=== PATIENT | male | born 1950 | race Caucasian/White ===

== ENCOUNTER → 2019-03-24 | Outpatient (CLI) | payer MEDICARE, BC ==
[2016-01-15 12:20] VITALS: BP 121/82
[~2019-03-24] MED LIST: CANA300T PO; CARV12.5 PO; CRESTOR5 MG PO; DICL100G18 TP; EPIN1AMP IV; FLUT1DIS5 IH; LISI-338 PO; LORA10TA68 PO; MELO7.5T29 PO; METF500T16 PO; MONT10TA80 PO; OXYB15TA4 PO; RIVA10TA PO; SPIR25TA PO
--- NOTE | 2019-03-24 17:02 | RAD ---
Carotid Doppler ultrasound INDICATION: Arteriosclerosis. COMPARISON: None TECHNIQUE: Color, grayscale and doppler ultrasound images obtained of the carotid system bilaterally. Percent stenosis is estimated using criteria that correlates with NASCET methodology. FINDINGS: Velocites and ratios are listed below. Velocites are as follows in cm/s: Right CCA PSV: 56 Right ICA PSV: 65 Right ICA EDV: 20 Right ICA/CCA Ratio: 1.16 Right Vertebral Artery: antegrade Left CCA PSV: 74 Left ICA PSV: 70 Left ICA EDV: 13 Left ICA/CCA Ratio: 0.95 Left Vertebral Arery: antegrade There is bilateral intimal thickening and soft as well as calcified plaque. Plaque is greatest at the carotid bulbs bilaterally. No evidence of occlusion. IMPRESSION: Bilateral atherosclerotic plaque, particularly in the region of the bulbs. No evidence of hemodynamically significant stenosis. Electronically signed by: Donnie Phillips MD (03/24/2019 4:59 PM) [facility]
== END | disposition home or self-care (01) ==
LOC: US 09:59
PROVIDERS: ATTEND Physician Assistant
DX: I65.23 Occlusion and stenosis of bilateral carotid arteries (principal)
CPT/HCPCS: 93880

== ENCOUNTER → 2019-10-20 | Outpatient (CLI) | payer MEDICARE, BC ==
[2016-01-15 12:20] VITALS: BP 121/82
[~2019-10-20] MED LIST changes: +DULA1.5P SQ; +ESCITALOPRAM OX10 MG PO; +FURO-69 PO; +LEVO500T8 PO; +OXYB5TAB10 PO; +POTA10TA12 PO; +RIVA20TA2 PO
--- NOTE | 2019-10-20 11:46 | RAD ---
Chest radiograph 10/20/2019 12:00 AM INDICATION: Dyspnea COMPARISON: None available TECHNIQUE: Frontal and lateral views of the chest are provided. FINDINGS: The cardiomediastinal silhouette is borderline enlarged There are no pleural effusions. There is no pulmonary vascular congestion. There is no pneumothorax. Patchy opacity at the right lung base may represent pulmonary infiltrate in the appropriate clinical setting. No significant osseous abnormality is identified. IMPRESSION: Patchy opacity at the right lung base may represent pulmonary infiltrate in appropriate clinical setting. Recommend follow-up to resolution. Electronically signed by: Nichol De Souza MD (10/20/2019 11:43 AM) [id number]
== END | disposition home or self-care (01) ==
LOC: PMG 10:23
PROVIDERS: ATTEND Physician Assistant
DX: R42 Dizziness and giddiness (principal); R06.00 Dyspnea, unspecified
CPT/HCPCS: 71046

== ENCOUNTER 2019-10-21 07:46 | Inpatient (IN) | payer MEDICARE, BC ==
[~2019-10-21] VITALS: Ht 182.9 cm; Wt 121.1 kg
[~2019-10-21 07:46] MED LIST changes: -DULA1.5P SQ; -ESCITALOPRAM OX10 MG PO; -FURO-69 PO; -LEVO500T8 PO; -OXYB5TAB10 PO; -POTA10TA12 PO; -RIVA20TA2 PO
--- NOTE | 2019-10-21 08:18 | PHYS DOC ---
Past History Past Medical History: CAD, CHF, COPD, Diabetes Additional Past Surgical Histo: coronary stents one year ago X3 Adult General Chief Complaint Chief Complaint: WEAKNESS/GENERALIZED HPI HPI Patient 69-year-old male presents secondary to progressive weakness. He has a history of congestive heart failure, diabetes, COPD, coronary artery disease status post 3 stents placed last year. He was seen by his primary care physician yesterday where chest x-ray was performed which showed a subtle right infiltrate. Patient reports he had labs performed but no results have been completed at this time. He also admits to some intermittent chills but denies fever or cough. He is concerned for possible congestive heart failure. He was given a prescription for Lasix and potassium yesterday which he took states he has not urinated much at this time. Denies shortness of breath or chest pain or lower extremity edema. Denies abdominal pain. Also c/o mild flank pain and decreased. Review of Systems Review of Systems All other ROS is negative unless otherwise stated in HPI Allergies Allergies Allergies Coded Allergies Type Severity Reaction Last Updated Verified venom-honey bee Allergy Severe Anaphylaxis 01/10/16 Yes Physical Exam Physical Exam See above Constitutional: Well developed, well nourished, no acute distress, non-toxic appearance. [] HENT: Normocephalic, atraumatic, bilateral external ears normal, oropharynx moist, no oral exudates, nose normal. [] Eyes: PERRLA, EOMI, conjunctiva normal, no discharge. [] Neck: Normal range of motion, no tenderness, supple, no stridor. [] Cardiovascular:Heart rate regular rhythm, no murmur [no lower extremity edema] Lungs & Thorax: Bilateral breath sounds clear to auscultation [] Abdomen: Bowel sounds normal, soft, no tenderness, no masses, no pulsatile masses. [] Skin: Warm, dry, no erythema, no rash. [] Back: No tenderness, no CVA tenderness. [] Extremities: No tenderness, no cyanosis, no clubbing, ROM intact, no edema. [] Neurologic: Alert and oriented X 3, normal motor function, normal sensory function, no focal deficits noted. [] Psychologic: Affect normal, judgement normal, mood normal. [] Current Patient Data Lab Results Laboratory Tests Test 10/21/19 08:51 White Blood Count 10.3 x10^3/uL Red Blood Count 4.26 x10^6/uL Hemoglobin 12.7 g/dL Hematocrit 38.9 % Mean Corpuscular Volume 91 fL Mean Corpuscular Hemoglobin 30 pg Mean Corpuscular Hemoglobin Concent 33 g/dL Red Cell Distribution Width 15.4 % Platelet Count 198 x10^3/uL Neutrophils (%) (Auto) 87 % Lymphocytes (%) (Auto) 6 % Monocytes (%) (Auto) 6 % Eosinophils (%) (Auto) 0 % Basophils (%) (Auto) 1 % Neutrophils # (Auto) 9.0 x10^3uL Lymphocytes # (Auto) 0.6 x10^3/uL Monocytes # (Auto) 0.6 x10^3/uL Eosinophils # (Auto) 0.0 x10^3/uL Basophils # (Auto) 0.1 x10^3/uL Sodium Level 135 mmol/L Potassium Level 4.1 mmol/L Chloride Level 96 mmol/L Carbon Dioxide Level 25 mmol/L Anion Gap 14 Blood Urea Nitrogen 21 mg/dL Creatinine 1.1 mg/dL Estimated GFR (Cockcroft-Gault) 66.0 Glucose Level 221 mg/dL Calcium Level 8.5 mg/dL Magnesium Level 1.6 mg/dL Troponin I Quantitative < 0.017 ng/mL HZ-Hop-C-Type Natriuretic Peptide 2386 pg/mL Current Medications Medications (Trade) Dose Ordered Sig/Letha Route PRN Reason Start Time Stop Time Status Last Admin Dose Admin Sodium Chloride 500 ml @ 0 mls/hr 1X ONCE IV 10/21/19 08:45 10/21/19 08:46 DC 10/21/19 08:54 Levofloxacin/ Dextrose 150 ml @ 100 mls/hr 1X ONCE IV 10/21/19 09:45 10/21/19 11:14 Magnesium Sulfate 100 ml @ 100 mls/hr 1X ONCE IV 10/21/19 09:45 10/21/19 10:44 UNV EKG EKG Performed at 0846a. Slightly irregulary rhythm. Left axis Inteval wnl.[] Radiology/Procedures Radiology/Procedures Chest radiograph 10/20/2019 12:00 AM INDICATION: Dyspnea COMPARISON: None available TECHNIQUE: Frontal and lateral views of the chest are provided. FINDINGS: The cardiomediastinal silhouette is borderline enlarged There are no pleural effusions. There is no pulmonary vascular congestion. There is no pneumothorax. Patchy opacity at the right lung base may represent pulmonary infiltrate in the appropriate clinical setting. No significant osseous abnormality is identified. IMPRESSION: Patchy opacity at the right lung base may represent pulmonary infiltrate in appropriate clinical setting. Recommend follow-up to resolution.[] CHEST PA LATERAL History: Weakness Comparison: October 20, 2019 Findings: Increased right basilar consolidation. Patchy bibasilar opacities. Mild cardiomegaly, unchanged. No pneumothorax. No pleural effusion. Impression: 1. Increased right basilar consolidation, concerning for pneumonia. Recommend follow-up to ensure resolution. 2. Increased patchy left basilar opacity, may represent atelectasis or additional consolidations. Electronically signed by: Naeem Palencia DO (10/21/2019 9:24 AM) [facility] Course & Med Decision Making Course & Med Decision Making Patient seen for progressive weakness. Multiple comorbidities presents possible right lower lobe pneumonia. We'll repeat chest x-ray today, check labs and give 500 mL normal saline bolus. 0940: Patient's workup was completed at this time and is significant for community required pneumonia bilateral bases more so on the right than the left. He has been given 750 mg of Levaquin for this and blood cultures are pending. Is not currently meeting SIRS criteria. He also appears to be in congestive heart failure exacerbation with elevated BNP. His magnesium was low as well at 1.6 so we'll give him 1 g of magnesium sulfate. Will discuss admission with the hospitalist. Dragon Disclaimer Dragon Disclaimer This electronic medical record was generated, in whole or in part, using a voice recognition dictation system. Departure Departure: Impression: Primary Impression: Community acquired pneumonia Additional Impressions: CHF exacerbation Weakness Hypomagnesemia Disposition: ADMITTED INPATIENT Admitting Physician: Fabian Vega Condition: STABLE Referrals: LARISSA WILLIAMSON (PCP) Problem Qualifiers JEFFERSON REYNOSO DO Oct 21, 2019 08:17
[2019-10-21] MEDS ORDERED: IV NORMAL SALINE 500ML 500 ML IV ONE (08:45)
[2019-10-21 09:06] LABS: BASO # 0.1 x10^3/uL (0.0-0.2); BASO % 1 % (0-3); EOS % 0 % (0-3); HEMATOCRIT 38.9 % (39.0-53.0); HEMOGLOBIN 12.7 g/dL (13.0-17.5); LYMPH # 0.6 x10^3/uL (1.0-4.8); LYMPH % 6 % (24-48); MEAN CORPUSCULAR HEMOGLOBIN 30 pg (25-35); MEAN CORPUSCULAR HGB CONC 33 g/dL (31-37); MEAN CORPUSCULAR VOLUME 91 fL (79-100); MONO # 0.6 x10^3/uL (0.0-1.1); MONO % 6 % (0-9); NEUT % 87 % (31-73); PLATELET COUNT 198 x10^3/uL (140-400); RED BLOOD COUNT 4.26 x10^6/uL (4.30-5.70); RED CELL DISTRIBUTION WIDTH 15.4 % (11.5-14.5); WHITE BLOOD COUNT 10.3 x10^3/uL (4.0-11.0)
[2019-10-21 09:13] LABS: CALCIUM 8.5 mg/dL (8.5-10.1); CREATININE 1.1 mg/dL (0.7-1.3); POTASSIUM 4.1 mmol/L (3.5-5.1)
[2019-10-21 09:25] LABS: MAGNESIUM 1.6 mg/dL (1.8-2.4)
--- NOTE | 2019-10-21 09:27 | RAD ---
CHEST PA LATERAL History: Weakness Comparison: October 20, 2019 Findings: Increased right basilar consolidation. Patchy bibasilar opacities. Mild cardiomegaly, unchanged. No pneumothorax. No pleural effusion. Impression: 1. Increased right basilar consolidation, concerning for pneumonia. Recommend follow-up to ensure resolution. 2. Increased patchy left basilar opacity, may represent atelectasis or additional consolidations. Electronically signed by: Naeem Palencia DO (10/21/2019 9:24 AM) [facility]
[2019-10-21] MEDS ORDERED: MAGNESIUM SULFATE 1GM 100 ML IV ONE (09:45)
[2019-10-21] MEDS ORDERED: IPRATRPIUM/ALBUTEROL 0.5/2.5MG 3 ML NEBU. NEB PRN (10:00)
[2019-10-21] MEDS ORDERED: ONDANSETRON PF 4 MG/2 ML VIAL. IV PRN (10:00)
[2019-10-21 11:01] VITALS: BP 132/86
[2019-10-21] MEDS ORDERED: MONT10TA80 PO (13:09)
[2019-10-21] MEDS ORDERED: FURO-69 PO (13:09)
[2019-10-21] MEDS ORDERED: POTA10TA12 PO (13:09)
[2019-10-21] MEDS ORDERED: RIVA20TA2 PO (13:09)
[2019-10-21] MEDS ORDERED: DULA1.5P SQ (13:09)
[2019-10-21] MEDS ORDERED: ESCITALOPRAM OX10 MG PO (13:09)
[2019-10-21] MEDS ORDERED: ACETAMINOPHEN 325 MG TABLET PO ONE (14:13)
[2019-10-21] MEDS ORDERED: FUROSEMIDE 40 MG/4 ML VIAL ONE (14:13)
[2019-10-21] MEDS: ACETAMINOPHEN 325 MG TABLET PO PRN (14:16)
[2019-10-21] MEDS ORDERED: DEXTROSE 50% 25 GM / 50ML DISP.SYRIN. IV PRN (14:45)
[2019-10-21 14:46] VITALS: BP_SYST 108
[2019-10-21 15:09] LABS: INFLUENZA A PATIENT NEGATIVE (NEGATIVE); INFLUENZA B PATIENT NEGATIVE (NEGATIVE)
--- NOTE | 2019-10-21 15:09 | HP ---
ADMIT DATE: 10/21/2019 HISTORY OF PRESENT ILLNESS: The patient is a 69-year-old male patient who presented to the Emergency Room of [facility] complaining of progressive weakness. He has history of congestive heart failure, diabetes, COPD, coronary artery disease, status post 3 stents placed last year. He was seen by his primary care physician yesterday where a chest x-ray was performed and showed a subtle right infiltrate. The patient reports that he had labs performed, but no results have been completed at this time. He also admits to some intermittent chills, but denies any fever or cough. He is concerned for possible congestive heart failure. He was given a prescription for Lasix and potassium yesterday, which he took and he stated he has not urinated much at this time. Did complain of shortness of breath. Cough is mostly dry. He also complained of orthopnea. On arrival, he was evaluated in the Emergency Room and has had a chest x-ray, which basically showed that the patient has increased right basilar consolidation with patchy bibasilar opacities, mild cardiomegaly, unchanged. No pneumothorax or pleural effusion. His lab work showed that his white cell count was normal. His chemistry was unremarkable. He did have hypomagnesemia. He was admitted with community-acquired pneumonia as well as possible acute on chronic congestive heart failure as well as COPD exacerbation. PAST MEDICAL HISTORY: Significant for coronary artery disease, status post myocardial infarction, status post PCI with 3 stents deployment, has history of CVA/TIA. He has aphasia for which he was seen by Dr. Camacho, hypertension, hyperlipidemia, type 2 diabetes mellitus, generalized osteoarthritis, prostate cancer, status post prostatectomy, diabetic peripheral neuropathy, also had morbid obesity, obstructive sleep apnea for which he is on CPAP. He also is known to have COPD, although he is not on oxygen at home. PAST SURGICAL HISTORY: Significant for percutaneous coronary intervention with stent deployment x 3, prostatectomy, left total knee arthroplasty and colonoscopy. ALLERGIES: He is allergic to CEPHALEXIN, OXYCODONE AND HONEY BEE VENOM. MEDICATIONS: He is currently on epinephrine 1 mg intravenously as needed for anaphylaxis. He is on Xarelto 20 mg once a day, Crestor 5 mg at bedtime, carvedilol 12.5 mg twice a day, lisinopril 5 mg once a day, spironolactone 25 mg once a day, escitalopram oxalate 10 mg once a day, potassium chloride 10 mEq daily, furosemide 20 mg once a day. He is on Advair Diskus 500/50 one puff twice a day, Singulair 10 mg at bedtime, metformin 500 mg twice a day and Trulicity 1.5 mg in 0.5 mL injection subcutaneously once a week. FAMILY HISTORY: He has no brothers or sisters. His father at the age of 74 because of mesothelioma. Mother at age of 88 because of Alzheimer disease and cerebrovascular accident. SOCIAL HISTORY: [place] is for the [place] time[place] They meet about 4-5 times a year. He [place] to stay in his [place]. He is an ex-smoker, quit in 1992. He used to smoke 2-3 packs a day since he was 16 years old and he used to drink alcohol before. Has not drink alcohol for years and does not use any drugs. 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 REVIEW OF SYSTEMS: The patient denies any blurring of vision, cataract, glaucoma or macular degeneration. Denied any earache, tinnitus or sensorineural deafness. Denied any nosebleeds, stuffy nose or postnasal drip. Denied any sore throat, sore tongue, toothache, hoarseness of voice or difficulty swallowing. Denied any nausea, vomiting, diarrhea or constipation. Denied any hematemesis, melena, hematochezia. Denied any dysuria, frequency or hematuria. Denied any chest pain. Did complain of shortness of breath, orthopnea and cough, which is mostly dry. PHYSICAL EXAMINATION: GENERAL: On arrival to the Emergency Room, he looked somewhat tachypneic, but there is no pallor, jaundice, cyanosis or thyromegaly. No jugular venous distention. No limb edema. VITAL SIGNS: His heart rate was 86, blood pressure was 138/65, temperature was 99, respiratory rate 12 and oxygen saturation was 94% on room air. HEAD, EYES, EARS, NOSE AND THROAT: Showed normocephalic, atraumatic. NECK: Supple. HEART: Showed normal first and second heart sounds. No gallop or murmur. CHEST: Clear to auscultation. No crepitation or rhonchi. ABDOMEN: Distended, soft, nontender. NEUROLOGIC: He was awake, alert, responding appropriately. All cranial nerves intact. EXTREMITIES: He moves extremities without difficulty. He ambulates with a walker; however, can walk only short distances because of severe pain in his both knee joints. LABORATORY DATA: Lab work on arrival showed a white cell count of 10,000, hemoglobin 12.7, hematocrit 38, MCV 91, and platelet count of 198,000 with normal manual differential. His chemistry showed a serum sodium 135, potassium 4.1, chloride 96, bicarbonate 25, anion gap of 14, BUN 21, creatinine was 1.1, estimated GFR was 66 mL per minute. His glucose was 221, calcium was 8.5, magnesium was 1.6. His beta natriuretic peptide was 2386. Lactic acid was only 1.3 and first set of troponin was 0.017. His chest x-ray showed increased right basilar consolidation, patchy bibasilar opacities, mild cardiomegaly unchanged. No pneumothorax, pleural effusion. ASSESSMENT AND PLAN: The patient was admitted with: 1. Community-acquired pneumonia. 2. Chronic obstructive pulmonary disease exacerbation. 3. Acute on chronic diastolic congestive heart failure, has multitude of other medical problems including: A. He has coronary artery disease, status post myocardial infarction, status post PCI with stent deployment, atrial fibrillation, rate controlled, on apixaban. B. History of transient ischemic attack and aphasia that has resolved; hypertension, hyperlipidemia, type 2 diabetes, osteoarthritis, and diabetic peripheral neuropathy. PLAN: We will reconcile all his medication. He was started on IV Levaquin. He was given 40 mg IV Lasix. We will continue to monitor his lab works closely and decide the further management accordingly. We will consult the cardiology team to assist with management. NAVARRO SAUNDERS MD DR: MARY/kael JOB#: [id number] / [id number]
[2019-10-21] MEDS: ALBUTEROL SULFATE 2.5 MG/3 ML NEBU. NEB SCH ×2 (16:10→20:50)
--- NOTE | 2019-10-21 16:10 | PDOC2 ---
CONSULT Date of Admission DATE: 10/21/19 TIME: 16:02 Reason for Consult: Congestive heart failure Referring Physician: Dr. Vega Chief Complaint Shortness of breath Source: Chart review, Patient Problem List Problems Medical Problems: (1) CHF exacerbation Status: Acute (2) Community acquired pneumonia Status: Acute (3) Hypomagnesemia Status: Acute (4) Weakness Status: Acute History of Present Illness 69-year-old male with history of coronary artery disease s/p PCI/stents placement one year ago, usually followed by Dr. Carreon at [facility] in [place], [place] presented complaining of progressive shortness of breath and weakness. He was diagnosed with community-acquired pneumonia and congestive heart failure and admitted for further management. He denied any chest pain, palpitations or syn cope. Past Medical History Coronary artery disease s/p PCI/3 stents placement one year ago Congestive heart failure, most probably chronic diastolic Atrial fibrillation, most probably permanent Hypertension Hyperlipidemia Diabetes mellitus type 2 CVA/TIA Obstructive sleep apnea on CPAP Prostate cancer COPD Osteoarthritis Past Surgical History Prostatectomy Left knee arthroplasty Family History Not contributory Social History Patient quit smoking and drinking alcohol several years ago. He denied any drug abuse. Current Medications Current Medications Sodium Chloride 500 ml @ 0 mls/hr 1X ONCE IV Last administered on 10/21/19at 08:54; Start 10/21/19 at 08:45; Stop 10/21/19 at 08:46; Status DC Levofloxacin/ Dextrose 150 ml @ 100 mls/hr 1X ONCE IV Last administered on 10/21/19at 10:11; Start 10/21/19 at 09:45; Stop 10/21/19 at 11:14; Status DC Magnesium Sulfate 100 ml @ 100 mls/hr 1X ONCE IV Last administered on 10/21/19at 10:10; Start 10/21/19 at 09:45; Stop 10/21/19 at 10:44; Status DC Ondansetron HCl (Zofran) 4 mg PRN Q4HRS PRN IV NAUSEA/VOMITING Last administered on 10/21/19at 14:53; Start 10/21/19 at 10:00; Stop 10/22/19 at 09:59 Albuterol/ Ipratropium (Duoneb) 3 ml QIDPRN PRN NEB SHORTNESS OF BREATH; Start 10/21/19 at 10:00; Stop 10/22/19 at 09:59 Acetaminophen (Tylenol) 650 mg PRN Q6HRS PRN PO fever Last administered on 10/21/19at 14:16; Start 10/21/19 at 14:15 Furosemide (Lasix) 40 mg DAILY IVP Last administered on 10/21/19at 14:16; Start 10/22/19 at 09:00; Stop 10/21/19 at 14:50; Status DC Levofloxacin/ Dextrose 150 ml @ 100 mls/hr Q24H IV ; Start 10/22/19 at 10:00 Acetaminophen (Tylenol) 325 mg STK-MED ONCE PO ; Start 10/21/19 at 14:13; Stop 10/21/19 at 14:13; Status DC Furosemide (Lasix) 40 mg STK-MED ONCE .ROUTE ; Start 10/21/19 at 14:13; Stop 10/21/19 at 14:14; Status DC Carvedilol (Coreg) 12.5 mg BID PO ; Start 10/21/19 at 21:00 Epinephrine HCl (EPINEPHrine AMPULE) 1 mg 1X PRN IM ANAPHYLAXIS; Start 10/21/19 at 14:15; Stop 10/21/19 at 15:03; Status DC Furosemide (Lasix) 20 mg DAILY PO ; Start 10/22/19 at 09:00; Stop 10/21/19 at 14:19; Status DC Lisinopril (Prinivil) 5 mg DAILY PO ; Start 10/22/19 at 09:00 Metformin HCl (Glucophage) 500 mg HS PO ; Start 10/21/19 at 21:00 Montelukast Sodium (Singulair) 10 mg HS PO ; Start 10/21/19 at 21:00 Potassium Chloride (Klor-Con) 10 meq DAILY PO ; Start 10/22/19 at 09:00 Spironolactone (Aldactone) 25 mg DAILY PO ; Start 10/22/19 at 09:00 Non-Formulary Medication (Dulaglutide (Trulicity)) 1.5 mg WEEKLY SQ ; Start 10/28/19 at 09:00; Status UNV Citalopram Hydrobromide (CeleXA) 20 mg QHS PO ; Start 10/21/19 at 21:00 Non-Formulary Medication (Fluticasone/ Salmeterol (Advair 500-50 Diskus)) 1 puff BID IH ; Start 10/21/19 at 21:00; Stop 10/21/19 at 14:36; Status DC Rivaroxaban (Xarelto) 20 mg DAILYWSUP PO ; Start 10/21/19 at 17:00 Atorvastatin Calcium (Lipitor) 20 mg QHS PO ; Start 10/21/19 at 21:00 Albuterol Sulfate (Ventolin) 2.5 mg RTQID NEB ; Start 10/21/19 at 16:00 Budesonide (Pulmicort) 0.5 mg RTBID NEB ; Start 10/21/19 at 20:00 Insulin Human Lispro (HumaLOG) 0-7 UNITS TIDWMEALS SQ ; Start 10/21/19 at 17:00 Dextrose (Dextrose 50%-Water Syringe) 12.5 gm PRN Q15MIN PRN IV SEE COMMENTS; Start 10/21/19 at 14:45 Active Scripts Active Reported Xarelto (Rivaroxaban) 20 Mg Tablet 1 Tab PO DAILY 30 Days with food Escitalopram Oxalate 10 Mg Tablet 1 Tab PO HS Trulicity (Dulaglutide) 1.5 Mg/0.5 Ml Pen.injctr 1.5 Mg SQ WEEKLY Montelukast Sodium Tablet (Montelukast Sodium) 10 Mg Tablet 10 Mg PO HS Lasix (Furosemide) 20 Mg Tablet 1 Tab PO DAILY 30 Days Potassium Chloride (Potassium Chloride) 10 Meq Tab.er.prt 10 Meq PO DAILY Crestor (Rosuvastatin Calcium) 5 Mg Tablet 1 Tab PO HS Metformin Hcl 500 Mg Tablet 1 Tab PO HS Epinephrine 1 mg/ml Ampul (Epinephrine HCl/Pf) 1 Mg/1 Ml Ampul 1 Mg IV PRN PRN Advair 500-50 Diskus (Fluticasone/Salmeterol) 1 Each Disk.w.dev 1 Puff IH BID Aldactone (Spironolactone) 25 Mg Tablet 1 Tab PO DAILY Lisinopril 5 Mg Tablet 1 Tab PO DAILY Coreg (Carvedilol) 12.5 Mg Tablet 1 Tab PO BID Allergies: Coded Allergies: venom-honey bee (Verified Allergy, Severe, Anaphylaxis, 01/10/16) cephalexin (Verified Allergy, Mild, Unknown, 10/21/19) oxycodone (Verified Allergy, Mild, Unknown, 10/21/19) PSYCHOLOGICAL ROS: No: Hallucinations Eyes: No: Loss of vision HEENT: No: Epistaxis Respiratory: YES: Cough, Shortness of breath Cardiovascular: No: Chest Pain Gastrointestinal: No: Vomiting, Diarrhea Genitourinary: No: Henaturia Neurological: No: Seizures Skin: No: Rash General: Alert, mild distress HEENT: Atraumatic Lungs: Other (scattered crepitations bilaterally) Heart: Other (heart rate is irregular) Abdomen: Soft, No tenderness Extremities: No edema Psych/Mental Status: Mood NL VITALS Vital Signs Date Time Temp Pulse Resp B/P (MAP) Pulse Ox O2 Delivery O2 Flow Rate FiO2 10/21/19 14:46 100.2 72 24 108/ 95 Nasal Cannula 2.0 Labs Laboratory Tests Test 10/21/19 08:51 10/21/19 09:48 10/21/19 14:38 10/21/19 15:05 White Blood Count 10.3 x10^3/uL (4.0-11.0) Red Blood Count 4.26 x10^6/uL (4.30-5.70) Hemoglobin 12.7 g/dL (13.0-17.5) Hematocrit 38.9 % (39.0-53.0) Mean Corpuscular Volume 91 fL (79-100) Mean Corpuscular Hemoglobin 30 pg (25-35) Mean Corpuscular Hemoglobin Concent 33 g/dL (31-37) Red Cell Distribution Width 15.4 % (11.5-14.5) Platelet Count 198 x10^3/uL (140-400) Neutrophils (%) (Auto) 87 % (31-73) Lymphocytes (%) (Auto) 6 % (24-48) Monocytes (%) (Auto) 6 % (0-9) Eosinophils (%) (Auto) 0 % (0-3) Basophils (%) (Auto) 1 % (0-3) Neutrophils # (Auto) 9.0 x10^3uL (1.8-7.7) Lymphocytes # (Auto) 0.6 x10^3/uL (1.0-4.8) Monocytes # (Auto) 0.6 x10^3/uL (0.0-1.1) Eosinophils # (Auto) 0.0 x10^3/uL (0.0-0.7) Basophils # (Auto) 0.1 x10^3/uL (0.0-0.2) Sodium Level 135 mmol/L (136-145) Potassium Level 4.1 mmol/L (3.5-5.1) Chloride Level 96 mmol/L (98-107) Carbon Dioxide Level 25 mmol/L (21-32) Anion Gap 14 (6-14) Blood Urea Nitrogen 21 mg/dL (8-26) Creatinine 1.1 mg/dL (0.7-1.3) Estimated GFR (Cockcroft-Gault) 66.0 Glucose Level 221 mg/dL (70-99) Calcium Level 8.5 mg/dL (8.5-10.1) Magnesium Level 1.6 mg/dL (1.8-2.4) Troponin I Quantitative < 0.017 ng/mL (0-0.055) < 0.017 ng/mL (0-0.055) FU-Ywc-Y-Type Natriuretic Peptide 2386 pg/mL (0-124) Lactic Acid Level 1.3 mmol/L (0.4-2.0) Influenza Type A (Rapid) Negative (NEGATIVE) Influenza Type B (Rapid) Negative (NEGATIVE) Assessment/Plan 1. Congestive heart failure, most likely acute on chronic diastolic. Continue diuresis with Lasix. We will obtain records from primary online banking specialist office. 2. Coronary artery disease s/p PCI/stents placement one year ago, clinically stable and chest pain-free. Cardiac enzymes negative. Continue current secondary prevention measures. 3. Permanent atrial fibrillation, rate well-controlled. Continue Xarelto for stroke prophylaxis. 4. Community acquired pneumonia: Continue antibiotics per IM 5. Hypertension: Controlled 6. Hyperlipidemia: Continue statin therapy 7. Diabetes mellitus type 2: Treat per IM Thank you for your consultation MILADY MCCARTNEY MD Oct 21, 2019 16:10
[2019-10-21] MEDS: RIVAROXABAN 10 MG TABLET. PO SCH (17:08)
[2019-10-21] MEDS: INSULIN LISPRO 300 UNITS/3 ML VIAL. SQ SCH (17:13)
--- NOTE | 2019-10-21 17:42 | EKG ---
[address] [address] Test Date: 2019-10-21 Test Time: 08:46:27 Pat Name: BART TREJO Department: Room: Gender: M Lehr Attendant: : 1950 Requested By: JEFFERSON REYNOSO Order Number: [id number] Reading MD: Measurements Intervals [place] Rate: 78 P: PA: QRS: -5 QRSD: 120 T: 94 QT: 404 QTc: 464 Interpretive Statements IRREGULAR RHYTHM, NO P-WAVE FOUND LEFTWARD AXIS R-S TRANSITION ZONE IN V LEADS DISPLACED TO THE LEFT LOW LIMB LEAD VOLTAGE NO SPECIFIC ECG ABNORMALITIES RI6.01 No previous ECG available for comparison
[2019-10-21 19:14] VITALS: BP 106/67
[2019-10-21] MEDS: BUDESONIDE 0.5 MG/2 ML NEBU NEB SCH (20:50)
[2019-10-21] MEDS ORDERED: NON FORMULARY ITEM (Fluticasone/Salmeterol (Advair 500-50 Diskus) 1 PUFF) IH SCH (21:00)
[2019-10-21] MEDS: metFORMIN 500 MG TABLET PO SCH (21:17)
[2019-10-21] MEDS: ATORVASTATIN CALCIUM 20 MG TABLET PO SCH (21:18)
[2019-10-21] MEDS: CITALOPRAM 20 MG TABLET. PO SCH (21:18)
[2019-10-21] MEDS: MONTELUKAST 10 MG TABLET. PO SCH (21:18)
[2019-10-21] MEDS: CARVEDILOL 12.5 MG TABLET PO SCH (21:19)
[2019-10-21 23:04] VITALS: BP 110/67
[2019-10-22 02:23] LABS: BILIRUBIN,URINE NEG (NEG); CLARITY,URINE HAZY; COLOR,URINE YELLOW; GLUCOSE,URINE 500 mg/dL (NEG)
[2019-10-22 02:24] LABS: AMORPHOUS SEDIMENT,UR PRESENT /HPF; BACTERIA,URINE FEW /HPF (0-FEW); NITRITE,URINE NEG (NEG); RBC,URINE 0 /HPF (0-2); SQUAMOUS EPITHELIAL CELL,UR FEW /LPF; UROBILINOGEN,URINE 0.2 mg/dL (0.2 mg/dL); WBC,URINE 0 /HPF (0-4)
[2019-10-22 04:58] VITALS: BP 100/57
[2019-10-22] MEDS: ALBUTEROL SULFATE 2.5 MG/3 ML NEBU. NEB SCH ×4 (05:11→20:14)
[2019-10-22 07:39] VITALS: BP 100/57
[2019-10-22] MEDS: BUDESONIDE 0.5 MG/2 ML NEBU NEB SCH ×3 (08:00→20:19)
[2019-10-22] MEDS: SPIRONOLACTONE 25 MG TABLET PO SCH (08:19)
[2019-10-22] MEDS: LISINOPRIL 5 MG TABLET. PO SCH ×2 (08:19→10:53)
[2019-10-22] MEDS: INSULIN LISPRO 300 UNITS/3 ML VIAL. SQ SCH ×3 (08:20→18:07)
[2019-10-22] MEDS: POTASSIUM CHLORIDE 10 MEQ TABLET.ER. PO SCH (08:20)
[2019-10-22] MEDS: FUROSEMIDE 40 MG TABLET PO SCH (08:20)
[2019-10-22] MEDS ORDERED: FUROSEMIDE 40 MG/4 ML VIAL IVP SCH (09:00)
[2019-10-22] MEDS ORDERED: FUROSEMIDE 20 MG TABLET PO SCH (09:00)
[2019-10-22 10:42] VITALS: BP 122/75
[2019-10-22] MEDS: CARVEDILOL 12.5 MG TABLET PO SCH ×2 (10:52→19:58)
[2019-10-22] MEDS: LACTOBACILLUS RHAMNOSUS GG 1 CAPSULE. PO SCH ×2 (10:53→19:59)
[2019-10-22] MEDS: ONDANSETRON PF 4 MG/2 ML VIAL. IVP PRN ×2 (12:25→18:23)
[2019-10-22] MEDS ORDERED: SENNOSIDES/DOCUSATE 8.6/50MG TABLET. PO PRN (12:30)
[2019-10-22 14:33] LABS: HEMATOCRIT 35.2 % (39.0-53.0); HEMOGLOBIN 11.5 g/dL (13.0-17.5); RED BLOOD COUNT 3.86 x10^6/uL (4.30-5.70); RED CELL DISTRIBUTION WIDTH 15.6 % (11.5-14.5)
[2019-10-22 14:40] LABS: CREATININE 1.3 mg/dL (0.7-1.3); GFR 54.4; POTASSIUM 3.8 mmol/L (3.5-5.1)
[2019-10-22 14:46] LABS: ALBUMIN 3.2 g/dL (3.4-5.0); ALBUMIN/GLOBULIN RATIO 0.7 (1.0-1.7); MAGNESIUM 1.7 mg/dL (1.8-2.4); TOTAL BILIRUBIN 0.7 mg/dL (0.2-1.0); TOTAL PROTEIN 7.7 g/dL (6.4-8.2)
[2019-10-22] MEDS ORDERED: OXYB5TAB10 PO (14:52)
[2019-10-22] MEDS ORDERED: DULA1.5P SQ (14:52)
[2019-10-22] MEDS ORDERED: NON FORMULARY ITEM (Dulaglutide (Trulicity) 1.5 MG) SQ SCH ×2 (15:00→15:30)
[2019-10-22 15:46] VITALS: BP 107/68
[2019-10-22] MEDS: RIVAROXABAN 10 MG TABLET. PO SCH (17:00)
--- NOTE | 2019-10-22 18:08 | RAD ---
STUDY: CT head without contrast INDICATION: Dizziness. Nausea and unsteady gait. COMPARISON: None. TECHNIQUE: Axial CT imaging through the head without the use of intravenous contrast. Sagittal and coronal reformats were obtained. One or more of the following individualized dose reduction techniques were utilized for this examination: 1. Automated exposure control 2. Adjustment of the mA and/or kV according to patient size 3. Use of iterative reconstruction technique. FINDINGS: No acute intracranial hemorrhage. No CT evidence for an acute cortical infarction. No mass effect, midline shift or hydrocephalus. Patchy and confluent bihemispheric/periventricular white matter low-attenuation. Intracranial atherosclerotic calcifications. Relatively mild parenchymal volume loss for age. Unremarkable scalp and orbits noting the presence of symmetric proptosis. Normally aerated mastoid air cells and middle ears. Intact calvarium. IMPRESSION: 1. No acute intracranial abnormality by CT. 2. White matter findings typically seen in the setting of chronic microvascular ischemic change. Electronically signed by: SANDRA SINCLAIR MD (10/22/2019 6:05 PM) [id number]
--- NOTE | 2019-10-22 18:17 | RAD ---
Study: CT abdomen/pelvis without intravenous contrast Indication: Anorexia. Progressive abdominal distention. Comparison: None. Technique: Helical CT imaging performed of the abdomen and pelvis without the use of intravenous contrast. Sagittal and coronal reformats were obtained. One or more of the following individualized dose reduction techniques were utilized for this examination: 1. Automated exposure control 2. Adjustment of the mA and/or kV according to patient size 3. Use of iterative reconstruction technique. Findings: Inherently limited evaluation without intravenous contrast. Chest: Right lower lobe more pronounced than left lower lobe consolidations with surrounding groundglass opacification and millimetric nodularity. Calcific coronary artery disease. A few areas of pericardial calcification are noted. Liver: No focal abnormality. Gallbladder/Biliary Tree: Unremarkable. Pancreas: No surrounding inflammatory changes or ductal dilatation. Spleen: Unremarkable. Adrenal Glands: Unremarkable. Kidneys/Ureters/Bladder: Small size of the kidneys. Limited evaluation of the parenchyma without contrast. No hydroureteronephrosis. Collapsed urinary bladder. Reproductive Organs: No concerning abnormality. Colon: Mild diverticulosis without diverticulitis. Appendix: Normal. Small Bowel: Nonobstructed. Stomach: Poorly evaluated due to collapse. Vasculature: Multifocal calcific atherosclerosis throughout the aorta and iliofemoral systems. No aneurysmal dilatation. Crescentic mineralization along the anterior aspect of the aortic lumen approaching the bifurcation favored more likely related to calcific plaque as opposed to a short segment dissection flap. Focal calcific atherosclerosis of the hepatic artery adjacent to the pancreatic head, image 60 series 2. Lymph Nodes: No pathologically enlarged lymph nodes. Peritoneum and Body Wall: No free fluid or air. Very small fat-containing umbilical hernia. Bones: No acute or aggressive osseous abnormality. Multifocal degenerative changes with discogenic arthrosis most pronounced at L4-L5. Multilevel bony neural foraminal encroachment. Miscellaneous: Surgical clips bilaterally along the superior pubic rami. Impression: 1. Findings most compatible with organizing pneumonia at both the right and left lower lobes. Recommend follow-up to ensure resolution. 2. No acute abnormality seen below the diaphragm. Specifically, no bowel obstruction or bowel related inflammation. 3. Chronic findings as detailed in the body of the report. Electronically signed by: SANDRA SINCLAIR MD (10/22/2019 6:15 PM) [id number]
[2019-10-22] MEDS: ACETAMINOPHEN 325 MG TABLET PO PRN (18:24)
[2019-10-22 19:30] VITALS: BP 100/60
[2019-10-22] MEDS: MAGNESIUM OXIDE 400 MG TABLET PO SCH (19:57)
[2019-10-22] MEDS: CITALOPRAM 20 MG TABLET. PO SCH (19:58)
[2019-10-22] MEDS: MONTELUKAST 10 MG TABLET. PO SCH (19:58)
[2019-10-22] MEDS: metFORMIN 500 MG TABLET PO SCH (19:58)
[2019-10-22] MEDS: ATORVASTATIN CALCIUM 20 MG TABLET PO SCH (19:58)
[2019-10-22] MEDS: OXYBUTYNIN CHLORIDE 5 MG TABLET PO SCH (20:30)
[2019-10-22] MEDS: TEMAZEPAM 15 MG CAPSULE PO PRN (20:35)
--- NOTE | 2019-10-22 22:50 | PN ---
DATE: 10/22/2019 SUBJECTIVE: The patient is resting flat in bed, complaining of being very dizzy, and extremely anorectic, has not been able to eat for the last 7 days. He has also very unsteady on his feet. Normally, he is very independent. PHYSICAL EXAMINATION: GENERAL: When I examined him this afternoon, he was resting flat in bed, in no apparent respiratory distress. Slightly pale. No jaundice or cyanosis. No lymphadenopathy, no thyromegaly. No jugular venous distention. No lower limb edema. VITAL SIGNS: Her heart rate was 101, blood pressure was 122/75, temperature 97.8, respiratory rate 20, and oxygen saturation was 92%. HEAD, EYES, EARS, NOSE, AND THROAT: Normocephalic, atraumatic. NECK: Supple. HEART: Showed normal first and second heart sounds. No gallop or murmur. CHEST: Clear to auscultation. No crepitation or rhonchi. ABDOMEN: Distended, soft, nontender. No guarding or rigidity. No organomegaly. All hernial orifice intact. Bowel sounds normal. NEUROLOGIC: He was awake, alert, responding appropriately. All his cranial nerves are intact. He moves extremities without difficulty. His intake and output are incompletely recorded. LABORATORY DATA: Her lab work this morning showed a white cell count of 7000, hemoglobin 11.5, hematocrit 35, MCV 91, platelet count 210,000. Serum sodium was 131, potassium 3.8, chloride 93, bicarbonate 27, anion gap of 11, BUN 19, creatinine 1.3, estimated GFR was 54 mL per minute. Her glucose 179, calcium was 8, magnesium was 1.7. Total bilirubin and alkaline phosphatase are normal. AST, ALT slightly elevated. Total protein 7.7, albumin 3.2. ASSESSMENT: Dizziness, unsteady gait, nausea and vomiting, and anorexia. PLAN: My plan is to arrange for him to have a CT scan of the head without contrast as well as CT abdomen and pelvis without contrast. We will decide the further management accordingly. NAVARRO SAUNDERS MD DR: MARY/kael JOB#: [id number] / [id number]
[2019-10-22 23:19] VITALS: BP 102/56
[2019-10-23] MEDS: ALBUTEROL SULFATE 2.5 MG/3 ML NEBU. NEB SCH ×4 (04:54→20:01)
[2019-10-23 05:57] VITALS: BP 93/60
[2019-10-23 07:04] LABS: HEMATOCRIT 35.7 % (39.0-53.0); HEMOGLOBIN 11.6 g/dL (13.0-17.5); RED BLOOD COUNT 3.94 x10^6/uL (4.30-5.70); RED CELL DISTRIBUTION WIDTH 15.6 % (11.5-14.5); WHITE BLOOD COUNT 5.1 x10^3/uL (4.0-11.0)
[2019-10-23 07:22] LABS: ALBUMIN 3.2 g/dL (3.4-5.0); ALBUMIN/GLOBULIN RATIO 0.7 (1.0-1.7); CALCIUM 8.1 mg/dL (8.5-10.1); CREATININE 1.4 mg/dL (0.7-1.3); POTASSIUM 3.6 mmol/L (3.5-5.1); TOTAL BILIRUBIN 0.6 mg/dL (0.2-1.0); TOTAL PROTEIN 7.7 g/dL (6.4-8.2)
[2019-10-23] MEDS: BUDESONIDE 0.5 MG/2 ML NEBU NEB SCH ×2 (08:00→20:01)
[2019-10-23] MEDS: INSULIN LISPRO 300 UNITS/3 ML VIAL. SQ SCH ×3 (08:00→17:00)
[2019-10-23] MEDS: LACTOBACILLUS RHAMNOSUS GG 1 CAPSULE. PO SCH ×2 (08:17→20:53)
[2019-10-23] MEDS: FUROSEMIDE 40 MG TABLET PO SCH (08:18)
[2019-10-23] MEDS: SPIRONOLACTONE 25 MG TABLET PO SCH (08:18)
[2019-10-23] MEDS: OXYBUTYNIN CHLORIDE 5 MG TABLET PO SCH ×4 (08:18→20:53)
[2019-10-23] MEDS: ONDANSETRON PF 4 MG/2 ML VIAL. IVP PRN (08:18)
[2019-10-23] MEDS: POTASSIUM CHLORIDE 10 MEQ TABLET.ER. PO SCH (08:19)
[2019-10-23] MEDS: MAGNESIUM OXIDE 400 MG TABLET PO SCH ×2 (08:19→20:53)
[2019-10-23] MEDS: CARVEDILOL 12.5 MG TABLET PO SCH ×2 (08:43→20:55)
--- NOTE | 2019-10-23 11:24 | PN ---
DATE: SUBJECTIVE: The patient is resting, slightly propped up in bed, in no apparent distress. He is feeling generally much improved. He was able to sit on the edge of the bed, had breakfast and walked to the bathroom, something that he could not do yesterday. No more feeling of dizziness and lightheadedness. Has had a CT scan of the head, which basically showed no acute intracranial abnormality. His white matter findings typically seen in the setting of chronic microvascular ischemic changes in the scalp, and orbits noting the presence of symmetric proptosis, but normally aerated mastoid air cells and middle ears and intact calvarium. CT scan of the abdomen and pelvis was also unremarkable and showed finding most compatible organizing pneumonia of both right and left lower lobes. No acute abnormalities seen below the diaphragms, no bowel obstruction or bowel related inflammation. The patient has been taking Voltaren orally for his aches and pains. Given his impaired kidney function, I recommended he should discontinue that. PHYSICAL EXAMINATION: GENERAL: When I saw him this morning, he was resting flat in bed, pale, no jaundice, cyanosis, no lymphadenopathy or thyromegaly. No jugular venous distension. No limb edema. VITAL SIGNS: His heart rate was 73, blood pressure was 93/60, temperature was 97.5, respiratory rate 22, and oxygen saturation was 96.5%. HEAD, EYES, EARS, NOSE AND THROAT: Normocephalic, atraumatic. NECK: Supple. HEART: Showed normal first and second sounds. No gallop or murmur. CHEST: Shows central trachea, equal bilateral expansion, air entry, vesicular sounds with bilateral basal crepitation posteriorly, more so on the right than left. I could not appreciate any rhonchi. ABDOMEN: Distended, soft, nontender. NEUROLOGIC: He is definitely more awake, alert, responding appropriately. All cranial nerves are intact. He moves extremities without difficulty. His intake over the last 24 hours was 1117, no output was recorded. LABORATORY DATA: As of this morning, white cell count was 5000, hemoglobin 11.6, hematocrit 36, MCV 91, and platelet count 219,000. Serum sodium of 132, potassium 3.6, chloride 94, bicarbonate 29, anion gap of 9, BUN 28, creatinine 1.4, estimated GFR was 50 mL per minute, his glucose 158, calcium was 8.1. Total bilirubin and alkaline phosphatase is normal. AST, ALT slightly elevated. Total protein 7.7, albumin 3.2. ASSESSMENT: 1. Community-acquired pneumonia, for which he continues to be on IV antibiotic. 2. Chronic obstructive pulmonary disease exacerbation. 3. Acute on chronic diastolic congestive heart failure, seems to be well compensated. 4. The patient has multiple other medical problems including: A. Coronary artery disease, status post myocardial infarction, status post PCI stent deployment. B. Atrial fibrillation, rate controlled, on apixaban. C. History of transient ischemic attack, aphasia. D. Hypertension. E. Hyperlipidemia. F. Type 2 diabetes and diabetic peripheral neuropathy. G. Generalized osteoarthritis. PLAN: To continue with IV Levaquin. Continue with all other medication. I will continue with rivaroxaban. I will add Tylenol Extra Strength 1000 mg 3 times a day is scheduled. NAVARRO SAUNDERS MD DR: MARY/kael JOB#: [id number] / [id number]
[2019-10-23] MEDS: ACETAMINOPHEN 500 MG TABLET PO SCH ×2 (11:56→21:01)
[2019-10-23 11:58] VITALS: BP 113/73
[2019-10-23 15:13] VITALS: BP 97/59
[2019-10-23] MEDS: RIVAROXABAN 10 MG TABLET. PO SCH (17:18)
[2019-10-23 18:37] VITALS: BP 96/57
[2019-10-23] MEDS: metFORMIN 500 MG TABLET PO SCH (20:53)
[2019-10-23] MEDS: ATORVASTATIN CALCIUM 20 MG TABLET PO SCH (20:53)
[2019-10-23] MEDS: CITALOPRAM 20 MG TABLET. PO SCH (20:53)
[2019-10-23] MEDS: MONTELUKAST 10 MG TABLET. PO SCH (20:53)
[2019-10-24] MEDS: TEMAZEPAM 15 MG CAPSULE PO PRN (01:03)
[2019-10-24] MEDS: ALBUTEROL SULFATE 2.5 MG/3 ML NEBU. NEB SCH ×2 (04:59→09:36)
[2019-10-24] MEDS: ACETAMINOPHEN 500 MG TABLET PO SCH (05:10)
[2019-10-24 05:25] VITALS: BP 133/77
[2019-10-24 06:16] LABS: HEMATOCRIT 34.3 % (39.0-53.0); HEMOGLOBIN 11.3 g/dL (13.0-17.5); RED BLOOD COUNT 3.8 x10^6/uL (4.30-5.70); RED CELL DISTRIBUTION WIDTH 15.1 % (11.5-14.5); WHITE BLOOD COUNT 4.7 x10^3/uL (4.0-11.0)
[2019-10-24 06:21] LABS: CALCIUM 8.7 mg/dL (8.5-10.1); CREATININE 1.3 mg/dL (0.7-1.3); GFR 54.4; POTASSIUM 3.7 mmol/L (3.5-5.1)
[2019-10-24] MEDS: INSULIN LISPRO 300 UNITS/3 ML VIAL. SQ SCH ×2 (08:00→12:00)
[2019-10-24] MEDS: OXYBUTYNIN CHLORIDE 5 MG TABLET PO SCH ×2 (08:14→12:25)
[2019-10-24] MEDS: FUROSEMIDE 40 MG TABLET PO SCH (08:14)
[2019-10-24] MEDS: LISINOPRIL 5 MG TABLET. PO SCH (08:14)
[2019-10-24] MEDS: POTASSIUM CHLORIDE 10 MEQ TABLET.ER. PO SCH (08:14)
[2019-10-24] MEDS: LACTOBACILLUS RHAMNOSUS GG 1 CAPSULE. PO SCH (08:14)
[2019-10-24] MEDS: MAGNESIUM OXIDE 400 MG TABLET PO SCH (08:14)
[2019-10-24] MEDS: CARVEDILOL 12.5 MG TABLET PO SCH (08:15)
[2019-10-24] MEDS: SPIRONOLACTONE 25 MG TABLET PO SCH (08:15)
[2019-10-24 10:39] VITALS: BP 111/66
[2019-10-24] MEDS ORDERED: LEVO500T8 PO (10:45)
== END 2019-10-24 13:21 | disposition home or self-care (01) | DRG 291 ==
LOC: ER 07:46 → 1 SOUTH 10:18
PROVIDERS: ADMIT Internal Medicine; ATTEND Internal Medicine
DX: I11.0 Hypertensive heart disease with heart failure (principal); J18.9 Pneumonia, unspecified organism; J44.1 Chronic obstructive pulmonary disease with (acute) exacerbation; J44.0 Chronic obstructive pulmonary disease with (acute) lower respiratory infection; I48.21 Permanent atrial fibrillation; I50.33 Acute on chronic diastolic (congestive) heart failure; E11.42 Type 2 diabetes mellitus with diabetic polyneuropathy; Z96.652 Presence of left artificial knee joint; I25.10 Atherosclerotic heart disease of native coronary artery without angina pectoris; E78.5 Hyperlipidemia, unspecified; H05.20 Unspecified exophthalmos; M15.9 Polyosteoarthritis, unspecified; J84.89 Other specified interstitial pulmonary diseases; E83.42 Hypomagnesemia; Z95.5 Presence of coronary angioplasty implant and graft; Z91.030 Bee allergy status; I25.2 Old myocardial infarction; Z87.891 Personal history of nicotine dependence; Z85.46 Personal history of malignant neoplasm of prostate; Z86.73 Personal history of transient ischemic attack (TIA), and cerebral infarction without residual deficits; Z88.8 Allergy status to other drugs, medicaments and biological substances; Z90.79 Acquired absence of other genital organ(s); Z82.0 Family history of epilepsy and other diseases of the nervous system; Z82.3 Family history of stroke
CPT/HCPCS: 36415; 70450; 71046; 74176; 80048; 80053; 81001; 82947; 83605; 83735; 83880; 84484; 85025; 85027; 87040; 87804; 93005; 94640; 99285; J1815; J1940; J1956; J2405; J3475; J7040; J7613; J7626

== ENCOUNTER 2020-05-22 13:32 | Emergency (ER) | payer MEDICARE, BC ==
[~2020-05-22] VITALS: Ht 182.9 cm; Wt 119.9 kg
[~2020-05-22 13:32] MED LIST changes: +DULA1.5P SQ; +ESCITALOPRAM OX10 MG PO; +FURO-69 PO; +LEVO500T8 PO; +OXYB5TAB10 PO; +POTA10TA12 PO; +RIVA20TA2 PO
[2020-05-22] MEDS ORDERED: ONDANSETRON PF 4 MG/2 ML VIAL. IVP ONE (14:00)
[2020-05-22] MEDS ORDERED: IV NORMAL SALINE 1,000ML 1,000 ML IV ONE (14:00)
[2020-05-22] MEDS ORDERED: GLUCAGON,HUMAN RECOMBINANT 1 MG KIT. IV ONE (14:15)
--- NOTE | 2020-05-22 14:19 | PHYS DOC ---
Past History Past Medical History: A-Fib, Arthritis, CHF, Diabetes, Hypertension, Pneumonia, TIA Additional Past Medical Histor: BRAIN BLEED; PROSTATE CANCER Past Surgical History: Cancer Surgery Additional Past Surgical Histo: CARDIAC CATH AND STENTS PLACED Alcohol Use: None General Adult EDM: Chief Complaint: DIFFICULTY SWALLOWING HPI: HPI: The history was obtained from the patient. Patient is a 70-year-old male with PMH multiple comorbidities who presents with a chief complaint of dysphagia. Patient states beginning yesterday morning he began having trouble swallowing. He states he has not been able to tolerate his own secretions. He states that this began after eating a piece of dressing. He does note that he has had difficulty swallowing pieces of similar food. He denies any history of endoscopy. Denies any known history of esophagitis, esophageal stricture, or gastritis. Denies any difficulty breathing. Denies vomiting. Denies abdominal pain or chest pain. Denies shortness of breath. Denies syncope. States he has not tried any medicine at home to help. Has never seen a GI specialist in the past for GI related issue. No other complaints. Review of Systems: Review of Systems: Constitutional: Denies fever or chills Eyes: Denies change in visual acuity HENT: Positive for dysphagia Respiratory: Denies cough or shortness of breath Cardiovascular: Denies chest pain or edema GI: Denies abdominal pain, nausea, vomiting, bloody stools or diarrhea : Denies dysuria Musculoskeletal: Denies back pain or joint pain Integument: Denies rash Neurologic: Denies headache, focal weakness or sensory changes Endocrine: Denies polyuria or polydipsia Lymphatic: Denies swollen glands Psychiatric: Denies depression or anxiety Heart Score: Risk Factors: Risk Factors: DM, Current or recent (<one month) smoker, HTN, HLP, family history of CAD, obesity. Risk Scores: Score 0 - 3: 2.5% MACE over next 6 weeks - Discharge Home Score 4 - 6: 20.3% MACE over next 6 weeks - Admit for Clinical Observation Score 7 - 10: 72.7% MACE over next 6 weeks - Early Invasive Strategies Current Medications: Current Meds: Current Medications Medications (Trade) Dose Ordered Sig/Letha Start Time Stop Time Status Last Admin Dose Admin Glucagon (Glucagen Kit) 1 mg 1X ONCE 05/22/20 14:15 05/22/20 14:16 DC Ondansetron HCl (Zofran) 4 mg 1X ONCE 05/22/20 14:00 05/22/20 14:14 DC Sodium Chloride 1,000 ml @ 1,000 mls/hr 1X ONCE 05/22/20 14:00 05/22/20 14:59 Allergies: Allergies: Allergies Coded Allergies Type Severity Reaction Last Updated Verified venom-honey bee Allergy Severe Anaphylaxis 05/22/20 Yes cephalexin Allergy Mild Unknown 05/22/20 Yes Physical Exam: PE: Constitutional: Well developed, well nourished, no acute distress, non-toxic appearance. [] HENT: Normocephalic, atraumatic, bilateral external ears normal, oropharynx moist, no oral exudates, nose normal. No stridulous breath sounds appreciated. Unable to tolerate secretions. Not tripoding. [] Eyes: PERRLA, EOMI, conjunctiva normal, no discharge. [] Neck: Normal range of motion, no tenderness, supple, no stridor. [] Cardiovascular:Heart rate regular rhythm, no murmur [] Lungs & Thorax: Bilateral breath sounds clear to auscultation [] Abdomen: soft, no tenderness, no masses, no pulsatile masses. [] Skin: Warm, dry, no erythema, no rash. [] Back: No tenderness, no CVA tenderness. [] Extremities: No tenderness, no cyanosis, no clubbing, ROM intact, no edema. [] Neurologic: Alert and oriented X 3, normal motor function, normal sensory function, no focal deficits noted. [] Psychologic: Affect normal, judgement normal, mood normal. [] Current Patient Data: Labs: Laboratory Tests Test 05/22/20 14:16 White Blood Count 9.6 x10^3/uL Red Blood Count 4.90 x10^6/uL Hemoglobin 14.9 g/dL Hematocrit 44.5 % Mean Corpuscular Volume 91 fL Mean Corpuscular Hemoglobin 31 pg Mean Corpuscular Hemoglobin Concent 34 g/dL Red Cell Distribution Width 15.2 % Platelet Count 275 x10^3/uL Neutrophils (%) (Auto) 74 % Lymphocytes (%) (Auto) 17 % Monocytes (%) (Auto) 7 % Eosinophils (%) (Auto) 1 % Basophils (%) (Auto) 1 % Neutrophils # (Auto) 7.1 x10^3uL Lymphocytes # (Auto) 1.6 x10^3/uL Monocytes # (Auto) 0.6 x10^3/uL Eosinophils # (Auto) 0.1 x10^3/uL Basophils # (Auto) 0.1 x10^3/uL Sodium Level 139 mmol/L Potassium Level 4.2 mmol/L Chloride Level 103 mmol/L Carbon Dioxide Level 23 mmol/L Anion Gap 13 Blood Urea Nitrogen 25 mg/dL Creatinine 1.2 mg/dL Estimated GFR (Cockcroft-Gault) 59.5 Glucose Level 139 mg/dL Calcium Level 9.7 mg/dL Current Medications Medications (Trade) Dose Ordered Sig/Letha Route PRN Reason Start Time Stop Time Status Last Admin Dose Admin Sodium Chloride 1,000 ml @ 1,000 mls/hr 1X ONCE IV 05/22/20 14:00 05/22/20 14:59 DC 05/22/20 14:42 Ondansetron HCl (Zofran) 4 mg 1X ONCE IVP 05/22/20 14:00 05/22/20 14:14 DC 05/22/20 14:41 Glucagon (Glucagen Kit) 1 mg 1X ONCE IV 05/22/20 14:15 05/22/20 14:16 DC 05/22/20 14:50 Vital Signs: Vital Signs Date Time Temp Pulse Resp B/P (MAP) Pulse Ox O2 Delivery O2 Flow Rate FiO2 05/22/20 13:54 98.5 83 18 122/87 (99) 96 Room Air EKG: EKG: [] Radiology/Procedures: Radiology/Procedures: [] Course & Med Decision Making: Course & Med Decision Making Pertinent Labs and Imaging studies reviewed. (See chart for details) [] Patient is a 70-year-old male who presents with a chief complaint of difficulty tolerating his own secretions and swallowing after eating a large piece of steak yesterday morning. Labs were obtained were unremarkable. Glucagon was attempted to alleviate the food impaction. He was still unable to tolerate fluids in his own secretions. He continues to report food impaction. I did speak with our GI specialist Dr. Esteban. Patient will be transferred to [facility] for GI evaluation. He did remain hemodynamically stable throughout his emergency department stay. Dragon Disclaimer: Dragon Disclaimer: This electronic medical record was generated, in whole or in part, using a voice recognition dictation system. Departure Departure: Impression: Primary Impression: Food impaction of esophagus Qualified Codes: T18.128A - Food in esophagus causing other injury, initial encounter Disposition: HOME/RESIDENCE PRIOR TO ADM Condition: STABLE Referrals: LARISSA WILLIAMSON (PCP) Justification of Admission: Justification of Admission: Justification of Admission Dx: Yes Comments: Food impaction COURTNEY BRAGA DO May 22, 2020 14:19
[2020-05-22 14:32] LABS: BASO # 0.1 x10^3/uL (0.0-0.2); BASO % 1 % (0-3); EOS # 0.1 x10^3/uL (0.0-0.7); EOS % 1 % (0-3); HEMATOCRIT 44.5 % (39.0-53.0); HEMOGLOBIN 14.9 g/dL (13.0-17.5); LYMPH # 1.6 x10^3/uL (1.0-4.8); LYMPH % 17 % (24-48); MEAN CORPUSCULAR HEMOGLOBIN 31 pg (25-35); MEAN CORPUSCULAR HGB CONC 34 g/dL (31-37); MEAN CORPUSCULAR VOLUME 91 fL (79-100); MONO # 0.6 x10^3/uL (0.0-1.1); MONO % 7 % (0-9); NEUT # 7.1 x10^3uL (1.8-7.7); NEUT % 74 % (31-73); PLATELET COUNT 275 x10^3/uL (140-400); RED CELL DISTRIBUTION WIDTH 15.2 % (11.5-14.5); WHITE BLOOD COUNT 9.6 x10^3/uL (4.0-11.0)
[2020-05-22 14:44] LABS: CALCIUM 9.7 mg/dL (8.5-10.1); CREATININE 1.2 mg/dL (0.7-1.3); GFR 59.5; POTASSIUM 4.2 mmol/L (3.5-5.1)
[2020-05-22 17:00] VITALS: BP_DIAS 87
[2020-05-22 18:00] VITALS: BP_SYST 153
== END 2020-05-22 18:05 | disposition home or self-care (01) ==
LOC: ER 13:32
DX: T18.128A Food in esophagus causing other injury, initial encounter (principal); I48.91 Unspecified atrial fibrillation; M19.90 Unspecified osteoarthritis, unspecified site; I11.0 Hypertensive heart disease with heart failure; E11.9 Type 2 diabetes mellitus without complications; Z86.73 Personal history of transient ischemic attack (TIA), and cerebral infarction without residual deficits; Z88.1 Allergy status to other antibiotic agents; Z91.030 Bee allergy status; X58.XXXA Exposure to other specified factors, initial encounter; Y93.89 Activity, other specified; Y92.89 Other specified places as the place of occurrence of the external cause; Y99.8 Other external cause status
CPT/HCPCS: 36415; 80048; 85025; 96361; 96374; 96375; 99285; J1610; J2405; J7030

== ENCOUNTER → 2021-02-11 | Outpatient (CLI) | payer MEDICARE, BC ==
[~2021-02-11] MED LIST changes: -LISI-338 PO; +LISI-517 PO
--- NOTE | 2021-02-11 16:37 | RAD ---
Three-view right knee study Clinical indications: Right knee pain FINDINGS: Total right knee arthroplasty is evident which is well aligned. No acute fracture or disloc ation or lytic process is seen. No right knee joint effusion is seen radiographically. IMPRESSION: No acute osseous abnormality. Three-view right ankle study: Clinical indications: Right ankle pain. FINDINGS: Deformity of the posterior malleolus is seen which may be due to an old healed fracture. No acute-appearing fracture is evident. Mortise ankle joint is intact. No lytic process is seen. Modera te-sized plantar spur of the calcaneus is evident. Dorsal exostosis of the cuneiform bones are seen. Diffuse calcified atheromatous arterial disease is seen. IMPRESSION: No acute fracture. Electronically signed by: Patricio Schultz MD (02/11/2021 4:34 PM) [id number]
== END ==
LOC: PMG 12:32
PROVIDERS: ATTEND Nurse Practitioner Family
DX: M77.31 Calcaneal spur, right foot (principal); M89.9 Disorder of bone, unspecified
CPT/HCPCS: 73562; 73610